=== PATIENT | female | born 1955 | race Caucasian/White ===

== ENCOUNTER 2019-09-24 13:47 | Emergency (ER) | payer BC ==
[2019-09-24 14:16] VITALS: BP 151/67
--- NOTE | 2019-09-24 14:35 | UC ---
Complaint Female HPI - HPI Summary HPI Summary: Pt presents with c/o gradual onset of low back and pelvic pressure, discomfort X 2 weeks. Pt states pain, pressure is intermittent and denies any fever, chills nausea, vomiting or recent unintended weight loss. - History Of Current Complaint Chief Complaint: UCGU Stated Complaint: URINARY Time Seen by Provider: 09/24/19 14:19 Hx Obtained From: Patient ?: No Onset/Duration: Sudden Onset, Lasting Weeks - 2 Timing: Intermittent Severity Initially: Mild Severity Currently: Moderate Pain Intensity: 4 Character: Dull, Cramping, Colicy Aggravating Factor(s): Nothing Alleviating Factor(s): Nothing Associated Signs And Symptoms: Positive: Back Pain - Risk Factors Ectopic Risk Factor: Prior Pelvic Surgery - had appendectomy in February Ovarian Torsion Risk Factor: Negative - Allergies/Home Medications Allergies/Adverse Reactions: Allergies Allergy/AdvReac Type Severity Reaction Status Date / Time prednisone Allergy heart Verified 09/24/19 14:16 palpations environmental Allergy Congestion Uncoded 09/24/19 14:16 Home Medications: Home Medications Cetirizine* [ZyrTEC 10 MG TAB*] 10 mg PO QAM 09/24/19 [History Confirmed ] raNITIdine HCl [Ranitidine HCl] 150 mg PO QAM 09/24/19 [History Confirmed ] PMH/Surg Hx/FS Hx/Imm Hx Previously Healthy: Yes - Surgical History Surgical History: Yes Surgery Procedure, Year, and Place: appy 02/2019 then c-diff - Family History Known Family History: Positive: Cardiac Disease - Social History Occupation: Employed Full-time Lives: With Family Alcohol Use: None Substance Use Type: None Smoking Status (MU): Former Smoker Have You Smoked in the Last Year: No - Immunization History Vaccination Up to Date: Yes Review of Systems All Other Systems Reviewed And Are Negative: Yes Constitutional: Positive: Negative Skin: Positive: Negative Eyes: Positive: Negative ENT: Positive: Negative Respiratory: Positive: Negative Cardiovascular: Positive: Negative Gastrointestinal: Positive: Abdominal Pain Genitourinary: Positive: Negative Motor: Positive: Negative Neurovascular: Positive: Negative Musculoskeletal: Positive: Negative Neurological: Positive: Negative Psychological: Positive: Negative Is Patient Immunocompromised?: No Physical Exam Triage Information Reviewed: Yes Appearance: Well-Appearing Vital Signs: Initial Vital Signs Temp 98.9 F 09/24/19 14:07 Pulse 85 09/24/19 14:07 Resp 22 09/24/19 14:07 BP 151/67 09/24/19 14:07 Pulse Ox 99 09/24/19 14:07 Vital Signs Reviewed: Yes Eye Exam: Normal ENT Exam: Normal Dental Exam: Normal Neck exam: Normal Respiratory Exam: Normal Cardiovascular Exam: Normal Abdominal Exam: Normal Musculoskeletal Exam: Normal Neurological Exam: Normal Psychological Exam: Normal Skin Exam: Normal Complaint Female Dx - Differential Dx/Diagnosis Differential Diagnosis/HQI/PQRI: Ureteral Stone, Urinary Tract Infection Provider Diagnosis: Hematuria Discharge ED - Sign-Out/Discharge Documenting (check all that apply): Patient Departure All imaging exams completed and their final reports reviewed: No Studies - Discharge Plan Condition: Stable Disposition: HOME Patient Education Materials: Hematuria (ED) Referrals: Delaney Muniz MD [Primary Care Provider] - As Soon As Possible - Billing Disposition and Condition Condition: STABLE Disposition: Home
== END 2019-09-24 14:44 | disposition home or self-care (01) ==
LOC: UCCORT 13:47
DX: R31.9 Hematuria, unspecified (principal); R10.2 Pelvic and perineal pain; Z88.8 Allergy status to other drugs, medicaments and biological substances; Z91.09 Other allergy status, other than to drugs and biological substances; Z87.891 Personal history of nicotine dependence
CPT/HCPCS: 81003; 87086; 99201; G0463